=== PATIENT | female | born 1960 | race Caucasian/White ===

== ENCOUNTER 2024-01-09 09:05 | Inpatient (IN) ==
--- NOTE | 2023-12-19 12:45 | PAT Medication Instructions ---
Medication Instructions Date of Service December 19, 2023 Home Medications amlodipine 10 mg tablet 10 mg PO HS azathioprine 50 mg tablet 75 mg PO QAM calcium carbonate 600 mg-vitamin D3 5 mcg (200 unit) tablet 1 tab PO QAM diphenhydramine 25 mg-acetaminophen 500 mg tablet (Tylenol PM Extra Strength) 1 - 2 tab PO HS famotidine 40 mg tablet (Pepcid) 40 mg PO HS fenofibrate 120 mg tablet 145 mg PO QAM glucosamine sulf dipot chlr,msm,chond 550 mg-C 30 mg-gema 1 mg capsule (Glucosamine Chondroitin) 1 cap PO BID levothyroxine 137 mcg tablet (Synthroid) 137 mcg PO QAM lisinopril 40 mg tablet 40 mg PO HS magnesium 500 mg tablet 500 mg PO QAM meloxicam 15 mg tablet 15 mg PO QAM mesalamine 500 mg capsule,extended release 1,000 mg PO QID multivitamin 1 cap PO QAM omega-3 fatty acids 1,000 mg PO QAM potassium 99 mg tablet 0 mg PO QAM venlafaxine 37.5 mg tablet 37.5 mg PO QAM venlafaxine 75 mg tablet 75 mg PO QAM ASK your surgeon for instructions meloxicam 15 mg tablet 15 mg PO QAM ASK your prescriber and surgeon azathioprine 50 mg tablet 75 mg PO QAM STOP taking 2 weeks before surgery (or as soon as possible if surgery is within 2 weeks) glucosamine sulf dipot chlr,msm,chond 550 mg-C 30 mg-gema 1 mg capsule (Glucosamine Chondroitin) 1 cap PO BID omega-3 fatty acids 1,000 mg PO QAM STOP taking 48 hours before surgery fenofibrate 120 mg tablet 145 mg PO QAM DO NOT take the morning of surgery calcium carbonate 600 mg-vitamin D3 5 mcg (200 unit) tablet 1 tab PO QAM magnesium 500 mg tablet 500 mg PO QAM mesalamine 500 mg capsule,extended release 1,000 mg PO QID multivitamin 1 cap PO QAM potassium 99 mg tablet 0 mg PO QAM Take morning of surgery With a small sip of water, OTHERWISE NOTHING TO EAT OR DRINK AFTER MIDNIGHT: levothyroxine 137 mcg tablet (Synthroid) 137 mcg PO QAM venlafaxine 37.5 mg tablet 37.5 mg PO QAM venlafaxine 75 mg tablet 75 mg PO QAM Take evening before surgery amlodipine 10 mg tablet 10 mg PO HS diphenhydramine 25 mg-acetaminophen 500 mg tablet (Tylenol PM Extra Strength) 1 - 2 tab PO HS famotidine 40 mg tablet (Pepcid) 40 mg PO HS lisinopril 40 mg tablet 40 mg PO HS mesalamine 500 mg capsule,extended release 1,000 mg PO QID Other Notes If you have any questions please call us at [phone] or [phone] or [phone] or [phone]
--- NOTE | 2023-12-26 09:46 | Anesthesiology Consultation ---
Date of Service December 26, 2023 Assessment & Plan (1) Encounter for pre-operative examination: Chart Review Chart Review: Acceptable Risk for Surgery and Patient seen in Pre Admission Testing Per PAT appt on 12/26/23, no recent illness/disease exposures, illness related symptoms, or recent illness/disease positive tests. Will leave to surgeon's discretion if preop Covid testing needed Per PCP clearance letter 12/29/23= Patient is low to moderate risk for complications during proposed surgery. Patient seen by PCP in office 12/29/23= patient seen for preoperative visit. Labs, urinalysis and CXR reviewed. Physical exam within normal limits. Patient is medically appropriate for surgery. Teaching & Discussion Pre-Anesthesia Teaching/Discussion Notes: Instructed NPO after midnight before surgery,except medications with 15 cc of water. Medication instructions provided according to the PAT guidelines. History Surgery Operation Date: 01/09/24 09:30 Proposed Procedures p T12-L1 Decompression, L3-S1 Decompression and Fusion with Spinal Cord Monitoring - Ramiro Love, Height/Weight Height: 5 ft 3 in Weight: 87.543 kg Allergies Allergy/AdvReac Type Severity Reaction Status Date / Time metoclopramide [From Reglan] Allergy Severe Seizure Verified 12/19/23 09:15 Penicillins Allergy Unknown Hives Verified 12/19/23 09:15 Medications Home Medications Medication Instructions Recorded Confirmed Last Taken amlodipine 10 mg tablet 10 mg PO HS 12/19/23 12/19/23 Unknown azathioprine 50 mg tablet 75 mg PO [facility] 12/19/23 12/19/23 Unknown calcium carbonate 600 mg-vitamin 1 tab PO [facility] 12/19/23 12/19/23 Unknown D3 5 mcg (200 unit) tablet diphenhydramine 25 1 - 2 tab PO HS 12/19/23 12/19/23 Unknown mg-acetaminophen 500 mg tablet (Tylenol PM Extra Strength) famotidine 40 mg tablet (Pepcid) 40 mg PO HS 12/19/23 12/19/23 Unknown fenofibrate 120 mg tablet 145 mg PO QAM 12/19/23 12/19/23 Unknown glucosamine sulf dipot 1 cap PO BID 12/19/23 12/19/23 Unknown chlr,msm,chond 550 mg-C 30 mg-gema 1 mg capsule (Glucosamine Chondroitin) levothyroxine 137 mcg tablet 137 mcg PO QAM 12/19/23 12/19/23 Unknown (Synthroid) lisinopril 40 mg tablet 40 mg PO HS 12/19/23 12/19/23 Unknown magnesium 500 mg tablet 500 mg PO QAM 12/19/23 12/19/23 Unknown meloxicam 15 mg tablet 15 mg PO QAM 12/19/23 12/19/23 Unknown mesalamine 500 mg capsule,extended 1,000 mg PO QID 12/19/23 12/19/23 Unknown release multivitamin 1 cap PO QAM 12/19/23 12/19/23 Unknown omega-3 fatty acids 1,000 mg PO QAM 12/19/23 12/19/23 Unknown potassium 99 mg tablet 0 mg PO QAM 12/19/23 12/19/23 Unknown venlafaxine 37.5 mg tablet 37.5 mg PO QAM 12/19/23 12/19/23 Unknown venlafaxine 75 mg tablet 75 mg PO QAM 12/19/23 12/19/23 Unknown Past Medical History Medical History Acid reflux well controlled and stable Acute muscle stiffness of neck on occ/feels like neck needs to crack - full rom. mildly improved at PAT appt 12/26/23 Chronic kidney disease Crohn's disease Stable per patient Depression High cholesterol HTN (hypertension) Hypothyroid Lumbar herniated disc Including lower thoracic area Nausea and vomiting after administration of anesthetic agent Exercise / Class Metabolic Activity II 4-5 Yardwork/Stairs/Walk up hill (one flight of stairs - no chest pain or SOB ) Past Surgical History Surgical History History of appendectomy History of bowel resection x2 History of x2 History of cholecystectomy laparoscopic History of colonoscopy History of endoscopy remote hx History of hysterectomy partial History of total left hip replacement Past Anesthesia History No Hx of Anesthesia Complications (with exception to PONV ) and No Family Hx of Anesthesia Complications History of PONV History of PONV (mildly relieved with pre and perioperative anti nausea medication ) and Hx of Motion Sickness Social History Smoking Status: Never smoker Do You Dip or Chew Tobacco: No Hx Alcohol Use: No Hx Substance Use: No substance use type: does not use Review of Systems - Chronic cough- mild in severity- only occasionally. Due to Lisinopril per patient - Hx of seizure (years ago per patient) - remote hx with Reglan- no seizure meds needed- no issues since taken off medication - Occ mild snoring - no witnessed apnea Patient denies chest pain, shortness of breath, dyspnea on exertion, cough, wheezing, palpitations. No hx of stroke, AL. No hx of blood clots or blood transfusions Physical Exam Vital Signs VITALS BP 134/83 P 81 TEMP 98.1 SP02 95% RESP 16 Constitutional no acute distress ENMT Mouth: no TMJ clicking Thyromental Distance: > or= 3.5 Finger Breadths (3.5) Mallampati Class: III Permanent implants to side teeth Crowns (patient unsure where) Neck + limited neck extension (mild) Respiratory normal respiratory effort; no respiratory distress Auscultation: lungs clear to auscultation bilaterally; no wheezes Cardiovascular Rate/Rhythm: regular rate and regular rhythm Heart Sounds: no murmur Vessels: no carotid bruit Musculoskeletal Spine: + pain with cervical ROM (mild) Extremities: extremities normal to inspection Psychiatric Orientation: alert Lab Results Anesthesia Preop Results Results Anesthesia Widget: WBC 7.30 K/ul (4.8-10.8) 12/26/23 Hgb 12.2 g/dl (12.0-16.0) 12/26/23 Hct 36.7 % (37.0-47.0) L 12/26/23 Plt 244 K/uL (130-400) 12/26/23 Na 141 mmol/L (136-145) 12/26/23 K 4.3 mmol/L (3.5-5.1) 12/26/23 Cl 108 mmol/L (98-107) H 12/26/23 CO2 28 mmol/L (21-32) 12/26/23 BUN 24 mg/dl (6-23) H 12/26/23 Creat 1.14 mg/dl (0.6-1.2) 12/26/23 Glucose Level 95 mg/dl (70-99(Fasting)) 12/26/23 PT 10.6 Seconds (9.0-12.0) 12/26/23 PTT 24 Seconds (21-31) 12/26/23 INR 1.0 (0.9-1.1) 12/26/23 Urine Color Dark Yellow 12/26/23 Urine Appearance Clear (Clear) 12/26/23 Urine pH 5.5 (4.5-7.5) 12/26/23 Urine Specific [place] 1.023 (1.000-1.030) 12/26/23 Urine Protein Negative (Negative) 12/26/23 Urine Glucose (UA) Negative (Negative) 12/26/23 Urine Ketones Trace (Negative) H 12/26/23 Urine Blood Negative (Negative) 12/26/23 Urine Nitrite Negative (Negative) 12/26/23 Urine Bilirubin Negative (Negative) 12/26/23 Urine Urobilinogen Negative (Negative) 12/26/23 Urine Leukocyte Esterase Negative (Negative) 12/26/23 Blood Type A Positive 12/26/23 Antibody Screen NEGATIVE 12/26/23 Testing Electrocardiogram Date: 12/26/23 Findings: + NSR @ (78bpm) Normal EKG per cardio Chest X-Ray Date: 12/26/23 Findings: + NAD FINDINGS: Cholecystectomy. Cardiomediastinal and hilar silhouettes are within normal limit s. No pneumothorax, pleural effusion or airspace consolidation. Spondylotic spurring of the spine appear
[2024-01-09] MEDS: LR 15ML/HR IV SCH (10:10)
[2024-01-09] MEDS: LR 60ML/HR IV SCH (10:16)
[2024-01-09] MEDS: VANCOMYCIN HCL 1,250 MG in SODIUM CHLORIDE 0.9% 250 ML IV SCH (10:17)
[2024-01-09] MEDS: ACETAMINOPHEN 500 MG TAB PO SCH (10:21)
[2024-01-09] MEDS: GABAPENTIN 600 MG DOSE PO SCH (10:22)
[2024-01-09] MEDS: CeleBREX 200 MG CAP PO SCH (10:22)
[2024-01-09] MEDS ORDERED: ATROPINE SULFATE 0.1 MG/ML 10ML SYR IV PRN (11:27)
[2024-01-09] MEDS ORDERED: ONDANSETRON INJ 2 MG/ML 2 ML VIAL IV PRN (11:27)
[2024-01-09] MEDS ORDERED: ePHEDrine sulfate 50 MG/ML AMP IV PRN (11:27)
[2024-01-09] MEDS ORDERED: fentaNYL citrate PF 100 MCG/2 ML VIAL IV PRN (11:27)
--- NOTE | 2024-01-09 12:13 | History & Physical Bridge Note ---
Date of Service January 09, 2024 History & Physical Bridge Note I have examined the patient, reviewed the History & Physical and in the interval since the performance of the History & Physical I have noted the following changes of clinical significance: no changes noted
--- NOTE | 2024-01-09 12:14 | History & Physical Report ---
Date of Service January 09, 2024 Assessment & Plan (1) Neurogenic claudication due to lumbar spinal stenosis: Plan: T12-L1 decompression, L3-S1 decompression and fusion History of Present Illness Chief Complaint: Back and bilateral leg pain Primary Care Provider: HARSHIL Jane This is a 63-year-old female who presents with chronic persistent back and leg pain and failing since course of nonoperative care is here for surgical invention. Allergies Allergy/AdvReac Type Severity Reaction Status Date / Time metoclopramide [From Reglan] Allergy Severe Seizure Verified 01/09/24 10:11 Penicillins Allergy Unknown Hives Verified 01/09/24 10:11 Home Medications Medication Instructions Recorded Confirmed Type amlodipine 10 mg tablet 10 mg PO HS 12/19/23 01/09/24 History azathioprine 50 mg tablet 75 mg PO QAM 12/19/23 01/09/24 History calcium carbonate 600 mg-vitamin 1 tab PO QAM 12/19/23 01/09/24 History D3 5 mcg (200 unit) tablet diphenhydramine 25 1 - 2 tab PO HS 12/19/23 01/09/24 History mg-acetaminophen 500 mg tablet (Tylenol PM Extra Strength) famotidine 40 mg tablet (Pepcid) 40 mg PO HS 12/19/23 01/09/24 History fenofibrate 120 mg tablet 145 mg PO QAM 12/19/23 01/09/24 History glucosamine sulf dipot 1 cap PO BID 12/19/23 01/09/24 History chlr,msm,chond 550 mg-C 30 mg-gema 1 mg capsule (Glucosamine Chondroitin) levothyroxine 137 mcg tablet 137 mcg PO QAM 12/19/23 01/09/24 History (Synthroid) lisinopril 40 mg tablet 40 mg PO HS 12/19/23 01/09/24 History magnesium 500 mg tablet 500 mg PO QAM 12/19/23 01/09/24 History meloxicam 15 mg tablet 15 mg PO QAM 12/19/23 01/09/24 History mesalamine 500 mg capsule,extended 1,000 mg PO QID 12/19/23 01/09/24 History release multivitamin 1 cap PO QAM 12/19/23 01/09/24 History omega-3 fatty acids 1,000 mg PO QAM 12/19/23 01/09/24 History potassium 99 mg tablet 0 mg PO QAM 12/19/23 01/09/24 History venlafaxine 37.5 mg tablet 37.5 mg PO QAM 12/19/23 01/09/24 History venlafaxine 75 mg tablet 75 mg PO QAM 12/19/23 01/09/24 History Past Med/Surg History Medical History Acid reflux well controlled and stable Acute muscle stiffness of neck on occ/feels like neck needs to crack - full rom. mildly improved at PAT appt 12/26/23 Chronic kidney disease Crohn's disease Stable per patient Depression High cholesterol HTN (hypertension) Hypothyroid Lumbar herniated disc Including lower thoracic area Nausea and vomiting after administration of anesthetic agent Surgical History History of appendectomy History of bowel resection x2 History of x2 History of cholecystectomy laparoscopic History of colonoscopy History of endoscopy remote hx History of hysterectomy partial History of total left hip replacement Social History Smoking Status: Never smoker Do You Dip or Chew Tobacco: No; Hx Alcohol Use: No Hx Substance Use: No Preferred Language: Samoan Communication Ability: Effective Oil Gas And Pipe Tester Required: No Beliefs That Will Affect Care: None Current Living Situation: Spouse Other Information That Helps Us Care for You: No Feels Safe at Home: Yes Assistive Devices: Glasses Physical Exam Physical Exam: Patient is alert and oriented Heart regular in rhythm Lungs clear Results & Data Results & Data Vital Signs (Past 12 Hours) Vital Signs Temp Pulse Resp BP Pulse Ox O2 Del Method 01/09/24 10:09 36.9 C 86 20 130/85 96 Room Air
[2024-01-09] MEDS: SCOPOLAMINE 1 MG/72 HR TDSY PATCH TD ONE (12:16)
[2024-01-09] MEDS ORDERED: fentaNYL citrate PF 100 MCG/2 ML VIAL ONE (12:26)
[2024-01-09] MEDS ORDERED: MIDAZOLAM HCL 1 MG/ML 2ML VIAL ONE (12:26)
[2024-01-09] MEDS ORDERED: LIDOCAINE 2% 20 MG/ML 5 ML SYR IV ONE (12:27)
[2024-01-09] MEDS ORDERED: ROCURONIUM BROMIDE 10 MG/ML 5 ML VIAL IV ONE ×3 (12:27→13:09)
[2024-01-09] MEDS ORDERED: PROPOFOL IV EMULSION 10 MG/ML 20 ML VIAL IV ONE ×3 (12:27→14:31)
[2024-01-09] MEDS ORDERED: ONDANSETRON INJ 2 MG/ML 2 ML VIAL ONE (12:27)
[2024-01-09] MEDS ORDERED: DEXAMETHASONE SOD INJ 4 MG/ML VIAL ONE (12:27)
[2024-01-09] MEDS ORDERED: PHENYLEPHRINE HCL 10 MG/ML VIAL ONE (13:05)
[2024-01-09] MEDS ORDERED: diphenhydrAMINE 50 MG/ML VIAL ONE (13:16)
[2024-01-09] MEDS ORDERED: GLYCOPYRROLATE 0.2 MG/ML VIAL ONE (13:16)
[2024-01-09] MEDS: BUPIVACAINE/EPINEPHRINE 0.25% 1:200,000 30 ML VIAL ONE (13:32)
[2024-01-09] MEDS ORDERED: HYDROmorphone INJ 2 MG/ML SYR/VIAL ONE (13:35)
[2024-01-09] MEDS ORDERED: SUGAMMADEX SODIUM 200 MG/2 ML VIAL IV ONE (14:59)
[2024-01-09] MEDS: ceFAZolin 330 MG/ML 1 GM VIAL ONE (15:40)
[2024-01-09] MEDS: FLOSEAL HEMOSTATIC MATRIX 10ML TOP ONE (15:41)
--- NOTE | 2024-01-09 16:20 | Operative Report ---
Post Operative Report Pre & Post Diagnosis Operation Date: 01/09/24 11:50 Pre-Op Diagnosis: #1 lumbar spinal stenosis with neurogenic claudication #2 T12-L1 disc herniation #3 obesity Post-Op Diagnosis: Same I identified the patient and participated in the time-out.: Yes Procedure Operation Date: 01/09/24 11:50 Actual Procedures #1 lumbar decompression with discectomy T12-L1. #2 lumbar decompression with bilateral medial facetectomies and foraminotomies L2-L3, L3-L4, L4-5 and L5-S1. #3 posterior spinal fusion L3-S1. #4 posterior segmental instrumentation L3-S1. #5 placement locally harvested morselized autograft posterior gutters. #6 placement infuse collagen sponge, with Koros bone graft in the posterior gutters L3-S1. Surgeon Ramiro Love, DO Land Clearer None Estimated Blood Loss 400 Findings See Below The patient is 5 foot 3 weighing 88 kg with a BMI in excess of 34. The patient's body was did contribute to significant technical difficulty with positioning exposure and the procedure itself and at least 50% increased operative time. Specimens None Indications This is a 63-year-old female who presents above-mentioned diagnosis or plan since course of nonoperative care is here for surgical invention. Description of Procedure Patient was met with identified informed consent obtained. Patient was then taken to the operative suite underwent a patient placed in a prone position on the Derian table on top of the Arnaud frame. All bony promises well-padded eyes inspected to ensure no external pressure placed upon the. This point lumbar spine was prepped and draped in normal sterile fashion. Sharp dissection with the assistance of Bovie cautery performed down to and exposing the lamina transverse processes of L3 L4-L5 and S1 levels bilaterally. From caudal to cephalad fashion complete laminectomy of the L5 was performed including bilateral medial facetectomies followed by a complete laminectomy of L4 with bilateral medial facetectomies foraminotomies then L3 with a bilateral medial facetectomies and foraminotomies and lastly partial laminectomy of L2 with bilateral medial facetectomies. Severe spinal stenosis was throughout the canal and addressed. 2 mm incidental durotomy was identified. Two 4-0 Nurolon sutu res were then utilized to close the durotomy site with a watertight seal. Pedicle screws were then placed in L3-L4-L5 and S1 levels bilaterally with assistance of fluoroscopy purposes john contoured and locked into position bilaterally. I then proceeded to T8-12 L1. A midline laminectomy decompression was performed including bilateral medial facetectomies allowing me to laterally approach a large disc herniation on the right. I was able to remove the fragments. The incision was then copiously irrigated the transverse processes of L3 L4-5 and the sacral ala burred to subcortical bleeding bone. Infuse collagen sponge, with Koros and local autograft placed in posterior gutters. 15 round NATALIE drain inserted. The incision was then closed with 1 Vicryl in the fascia 2-0 Vicryl subcutaneously and 4 Monocryl for final skin closure. Steri- Strips sterile dressing placed. Patient awakened taken to PACU in stable condition. Please note spinal cord monitoring was utilized at the procedure and no changes noted. I attest to the content of the Intraoperative Record and any orders documented therein. Any exceptions are noted below.
--- NOTE | 2024-01-09 16:23 | Fluoroscopy Report ---
FL lumbar spine 2-3V CLINICAL HISTORY: T12-L1 DECOMPRESSION L3-S1 DECOMPRESSION AND FUSION COMPARISON STUDY: None FLUOROSCOPY TIME: 34 seconds FLUOROSCOPY IMAGES: 3 EXPOSURE DOSE: 29.01 mGy FINDINGS: Posterior interbody john and screw fusion hardware is noted at what appears to be the L3-S1 levels. Hardware appears intact. No unexpected opaque foreign bodies. IMPRESSION: Fluoroscopic assistance as above. ACT 112: Negative or not required by law. Electronically signed by: Neno Dalal M.D. 01/09/2024 4:21 PM
--- NOTE | 2024-01-09 17:02 | Anesthesiology Progress Note ---
Date of Service January 09, 2024 Anesthesia Post Procedure Vital Signs Vital Signs: Temp Pulse Pulse Resp BP Pulse Ox O2 Del Method 01/09/24 16:55 36.4 C L 88 15 113/62 97 Oxymask 01/09/24 16:45 84 14 121/70 97 Oxymask 01/09/24 16:35 89 15 103/58 L 97 Oxymask 01/09/24 16:25 85 15 98/56 L 98 Oxymask 01/09/24 16:17 36.2 C L 94 H 17 105/60 97 Oxymask 01/09/24 10:09 36.9 C 86 20 130/85 96 Room Air O2 Flow Rate 01/09/24 16:55 5 01/09/24 16:45 5 01/09/24 16:35 5 01/09/24 16:25 5 01/09/24 16:17 5 01/09/24 10:09 Transfer of Care Handoff Completed per policy Notes Mental Status: alert / awake / arousable Patient Amnestic to Procedure: Yes Nausea / Vomiting: adequately controlled Pain: adequately controlled Airway Patency, RR, SpO2: stable & adequate BP & HR: stable & adequate Hydration State: stable & adequate Anesthetic Complications: no major complications apparent and Pt Satisfied with anesthetic care
[2024-01-09] MEDS ORDERED: diphenhydrAMINE Capsule 25 MG CAP PO PRN (18:02)
[2024-01-09] MEDS ORDERED: METOCLOPRAMIDE HCL INJ 5 MG/ML 2 ML VIAL IV PRN (18:02)
[2024-01-09] MEDS ORDERED: FAMOTIDINE 20 MG TAB PO PRN (18:02)
[2024-01-09] MEDS ORDERED: bisacodyL 10 MG SUPP PR PRN (18:02)
[2024-01-09] MEDS ORDERED: DO NOT ADMINISTER PNEUMOCOCCAL VACCINE PRN (18:02)
[2024-01-09] MEDS ORDERED: NALOXONE HCL 0.4 MG/1 ML VIAL/CARP IV PRN (18:02)
[2024-01-09] MEDS ORDERED: ONDANSETRON 4 MG OD TAB PO PRN (18:02)
[2024-01-09] MEDS ORDERED: DO NOT ADMINISTER FLU VACCINE PRN (18:02)
[2024-01-09] MEDS ORDERED: ALUMINUM/MAGNESIUM SUSP 30 ML UDC PO PRN (18:02)
[2024-01-09] MEDS ORDERED: hydrOXYzine HCl 25 MG TAB PO PRN (18:02)
[2024-01-09] MEDS ORDERED: MAGNESIUM HYDROXIDE SUSP 30 ML UDC PO PRN (18:02)
[2024-01-09] MEDS ORDERED: SOD PHOSPHATE/SOD BIPHOSPHATE ENEMA 132 ML BTL PR PRN (18:02)
[2024-01-09] MEDS ORDERED: LORazepam 0.5 MG TAB PO PRN (18:02)
[2024-01-09] MEDS ORDERED: LORazepam 0.5 MG in SYRINGE 0.25 ML IV PRN (18:02)
[2024-01-09] MEDS: LACTATED RINGER'S 1,000 ML IV SCH (18:46)
[2024-01-09] MEDS: CHECK SCOPOLAMINE PATCH PLACEMENT SCH (19:44)
[2024-01-09] MEDS: MESALAMINE 250 MG CAPCR PO SCH (19:45)
[2024-01-09] MEDS: amLODIPine BESYLATE 5 MG TAB PO SCH (21:17)
[2024-01-09] MEDS: lisinopril 40 MG TAB PO SCH (21:18)
[2024-01-09] MEDS: FAMOTIDINE 40 MG TABLET PO SCH (21:18)
[2024-01-09] MEDS: DOCUSATE SODIUM/SENNA 50/8.6MG TAB PO SCH (21:18)
[2024-01-09] MEDS: oxyCODONE HCL IR 5 MG TAB (IMMEDIATE RELEASE) PO PRN (21:21)
[2024-01-09] MEDS: CLINDAMYCIN/D5W 600 MG/50 ML BAG IV SCH (22:00)
[2024-01-09] MEDS: HYDROmorphone INJ 0.5 MG/0.5 ML SYR IV PRN (22:03)
[2024-01-09] MEDS: ACETAMINOPHEN 1,000 MG/100 ML VIAL IV PRN (22:49)
[2024-01-10] MEDS: ONDANSETRON INJ 2 MG/ML 2 ML VIAL IV PRN (01:03)
[2024-01-10] MEDS: HYDROmorphone INJ 1 MG/ML SYRINGE IV PRN (01:14)
[2024-01-10] MEDS: PROMETHAZINE HCL 12.5 MG in SODIUM CHLORIDE 0.9% 50 ML IV PRN (04:59)
[2024-01-10] MEDS: POLYETHYLENE (MIRALAX) 17 GM PACK PO SCH (05:02)
[2024-01-10] MEDS: LEVOTHYROXINE SODIUM 137 MCG TABLET PO SCH (06:25)
[2024-01-10 06:56] LABS: Basophils # (auto) 0.01 K/uL (0.00-0.20); Basophils % (auto) 0.1 %; Hematocrit (blood only) 30.5 % (37.0-47.0); Hemoglobin 10.7 g/dl (12.0-16.0); Immature Granulocytes # (auto) 0.04 K/uL (0.01-0.20); Immature Granulocytes % (auto) 0.4 %; Lymphocytes # (auto) 0.65 K/uL (1.20-3.40); Mean Corpuscular Hgb Conc 35.1 g/dL (32.0-36.0); Mean Corpuscular Volume 88.4 fL (80.0-100.0); Mean Platelet Volume 11.2 fL (9.4-12.4); Monocytes # (auto) 0.51 K/uL (0.11-0.59); Monocytes % (auto) 4.7 %; Neutrophils # (auto) 9.67 K/uL (1.40-6.50); Neutrophils % (auto) 88.8 %; Platelet Count 210 K/uL (130-400); RDW Coefficient of Variation 12.8 % (11.5-14.5); RDW Standard Deviation 41.1 fL (36.4-46.3); Red Blood Count 3.45 M/uL (4.20-5.40); White Blood Count 10.88 K/ul (4.8-10.8)
[2024-01-10 07:30] LABS: BUN Creatinine Ratio 24.7 (10-20); Calcium 8.1 mg/dl (8.6-10.3); Est GFR (African American) 76.3 ml/min; Est GFR (Non-African American) 65.9 ml/min
--- NOTE | 2024-01-10 08:13 | Hospitalist Consultation ---
Date of Consultation January 10, 2024 Assessment & Plan (1) Neurogenic claudication due to lumbar spinal stenosis: S/p T12-L1 Decompressions and L3-S1 Decompression and Fusion with Dr. Love 01/08 - DVT proh/pain control/ post op abx per primary team - Hgb 10.7, was 12.2 prior to surgery --> dilutional vs acute blood loss anemia - EBL 400 Has been cleared from bedrest, will start with therapy today. (2) Hypothyroid: Continue synthroid (3) HTN (hypertension): Continue amlodipine and lisinopril - lisinopril given PM post op Day #0, kidney function and BP stable, okay to continue (4) Depression: Continue Venlafexine (5) Crohn's disease: also with GERD continue azathioprine, famotidine, fenofibrate and mesalamine Plan Dispo: medically stable Patient pain concern was nausea and pain control which are improving. VSS and labs reviewed. Thank you for allowing us to participate in the care of this patient, medicine will sign off at this time. please reach out with any questions or concerns History of Present Illness Reason for Consultation: medical management Attending Physician: Ramiro Love, DO History of Present Illness Ms. Gupta is a 63F with a PMH of hypothryoid, Chron's disease, and HTN who presents for elective back surgery with Dr. Love. Seen this morning, POD#1, states that she had a rough night with pain and then became nauseous, but both of these symptoms have subsided. Reports poor appetite and has not passed gas since surgery. Non smoker, no CPAP uses at home. Allergies Allergy/AdvReac Type Severity Reaction Status Date / Time metoclopramide [From Reglan] Allergy Severe Seizure Verified 01/09/24 10:11 Penicillins Allergy Unknown Hives Verified 01/09/24 10:11 Home Medications Medication Instructions Recorded Confirmed Type amlodipine 10 mg tablet 10 mg PO HS 12/19/23 01/09/24 History azathioprine 50 mg tablet 75 mg PO QAM 12/19/23 01/09/24 History calcium carbonate 600 mg-vitamin 1 tab PO QAM 12/19/23 01/09/24 History D3 5 mcg (200 unit) tablet diphenhydramine 25 1 - 2 tab PO HS 12/19/23 01/09/24 History mg-acetaminophen 500 mg tablet (Tylenol PM Extra Strength) famotidine 40 mg tablet (Pepcid) 40 mg PO HS 12/19/23 01/09/24 History fenofibrate 120 mg tablet 145 mg PO QAM 12/19/23 01/09/24 History glucosamine sulf dipot 1 cap PO BID 12/19/23 01/09/24 History chlr,msm,chond 550 mg-C 30 mg-gema 1 mg capsule (Glucosamine Chondroitin) levothyroxine 137 mcg tablet 137 mcg PO QAM 12/19/23 01/09/24 History (Synthroid) lisinopril 40 mg tablet 40 mg PO HS 12/19/23 01/09/24 History magnesium 500 mg tablet 500 mg PO QAM 12/19/23 01/09/24 History meloxicam 15 mg tablet 15 mg PO QAM 12/19/23 01/09/24 History mesalamine 500 mg capsule,extended 1,000 mg PO QID 12/19/23 01/09/24 History release multivitamin 1 cap PO QAM 12/19/23 01/09/24 History omega-3 fatty acids 1,000 mg PO QAM 12/19/23 01/09/24 History potassium 99 mg tablet 0 mg PO QAM 12/19/23 01/09/24 History venlafaxine 37.5 mg tablet 37.5 mg PO QAM 12/19/23 01/09/24 History venlafaxine 75 mg tablet 75 mg PO QAM 12/19/23 01/09/24 History oxycodone 5 mg tablet 5 mg PO Q6H PRN pain #30 tabs 01/10/24 Rx tramadol 50 mg tablet 50 mg PO Q6H PRN pain, moderate 01/10/24 Rx #30 tabs Patient History Medical History (Updated 01/10/24 @ 08:16 by Pauline Mar PA-C) Depression HTN (hypertension) Lumbar herniated disc Including lower thoracic area Nausea and vomiting after administration of anesthetic agent Acute muscle stiffness of neck on occ/feels like neck needs to crack - full rom. mildly improved at PAT appt 12/26/23 Chronic kidney disease Acid reflux well controlled and stable Crohn's disease Stable per patient Hypothyroid High cholesterol Surgical History History of hysterectomy partial History of appendectomy History of cholecystectomy laparoscopic History of bowel resection x2 History of x2 History of endoscopy remote hx History of colonoscopy History of total left hip replacement Social History Smoking Status: Never smoker Do You Dip or Chew Tobacco: No; Hx Alcohol Use: No Hx Substance Use: No Preferred Language: Portuguese Communication Ability: Effective Certified Master Safe Technician Required: No Beliefs That Will Affect Care: None Current Living Situation: Spouse Other Information That Helps Us Care for You: No Feels Safe at Home: Yes Assistive Devices: Glasses Review of Systems Review of Systems: All systems reviewed & are unremarkable except as noted in Subjective Physical Exam Physical Exam: General: NAD, lying in bed, just cleared from bed rest VS as above Resp: normal respiratory effort, lungs clear to auscultation CV: RRR, no murmur, Abd: soft, non tender, no hepatosplenomegaly Extremities: Moves all extremities, no edema Drain with minimal serosanguineous drainage Results & Data Results & Data Vital Signs (Past 12 Hours) Vital Signs Temp Pulse Resp BP Pulse Ox O2 Del Method O2 Flow Rate 01/10/24 07:19 36.7 C 97 H 17 137/75 94 Room Air 01/10/24 05:50 36.3 C L 99 H 20 159/84 H 95 Room Air 01/10/24 01:01 87 20 127/75 97 Nasal Cannula 2 01/09/24 20:53 36.5 C 91 H 18 117/68 97 Nasal Cannula 2.0 01/09/24 20:32 Nasal Cannula 2 Laboratory Results CBC and Chemistry reviewed PG Care Time/CCT Total # of Minutes Spent Total Time Spent with Patient: Total time spent is greater than 50% in coordination of care (as documented) at patient's floor/unit and/or counseling patient: Coding Level of Care Code 51160 IN/OBS CONSULT LVL 3,45M Diagnoses Neurogenic claudication due to lumbar spinal stenosis M48.062 Hypothyroid E03.9 HTN (hypertension) I10 Depression F32.A Crohn's disease K50.90
--- NOTE | 2024-01-10 08:40 | Orthopedic Progress Note ---
Date of Service January 10, 2024 Assessment & Plan (1) Neurogenic claudication due to lumbar spinal stenosis: Plan: At this time we will discontinue her and initiate physical therapy today. Will see how she progresses throughout the next few days and possibly return home. Admission and Anticipated Discharge Date Admission Date: January 09, 2024 Subjective Patient is complaining of back pain. She denies any leg pain. Struggling with some nausea. Denies headache or photosensitivity. Physical Exam Physical Exam: On exam she is sitting up in bed. She has good strength testing. Sensory is intact. Results & Data Vital Signs (Past 12 Hours) Vital Signs Temp Pulse Resp BP Pulse Ox O2 Del Method O2 Flow Rate 01/10/24 07:19 36.7 C 97 H 17 137/75 94 Room Air 01/10/24 05:50 36.3 C L 99 H 20 159/84 H 95 Room Air 01/10/24 01:01 87 20 127/75 97 Nasal Cannula 2 01/09/24 20:53 36.5 C 91 H 18 117/68 97 Nasal Cannula 2.0 Queries Orthopedic Spine Obesity: Yes
[2024-01-10] MEDS: azaTHIOprine 25 MG TAB PO SCH (08:43)
[2024-01-10] MEDS: MAGNESIUM OXIDE 400 MG TAB PO SCH (08:43)
[2024-01-10] MEDS: VENLAFAXINE HCL XR 75 MG CAPXR PO SCH (08:43)
[2024-01-10] MEDS: dexAMETHasone 6 MG in SYRINGE 0 ML IV SCH (08:43)
[2024-01-10] MEDS: FENOFIBRATE NANOCRYSTALLIZED 145 MG TABLET PO SCH (08:43)
[2024-01-10] MEDS: CALCIUM 600MG + VIT D 400 IU TAB PO SCH (08:43)
[2024-01-10] MEDS: VENLAFAXINE HCL XR 37.5 MG CAPXR PO SCH (08:43)
--- OUTSIDE RECORDS SUMMARY | 2024-01-10 09:57 | External Medical Summary | Continuity of Care Document ---
Author Name Unknown Organization [facility] Address [address] [place] [address] Phone [phone] Care Team Providers Care Rat Exterminator Name Role Phone Karan Sainz MD Care Team Information Receiv er [phone] [facility] Care Team Information Staff Veterinarian [phone] Problems Active Problems Provider Date Essential hypertension HARSHIL Decker O nset: 06/12/2010 Mixed hyperlipidemia HARSHIL Decker Ons et: 07/17/2016 Hypothyroidism HARSHIL Decker Onset: 0 03/25/2017 Gastroesophageal reflux disease HARSHIL Cedillo Onset: 06/12/2010 Rosacea HARSHIL Decker Onset: 0 06/12/2010 Crohn's disease of small intestine HARSHIL Fink Onset: 03/13/2016 Mild recurrent major depression HARSHIL Cedillo Onset: 07/17/2016 Social History Type Date Description Comments Sex Unknown Tobacco Use Start: Unknown End: Unknown Former Cigarette Smoker Cigarette Use 10/10/2023 Quit at age 21 Smoking Status Reviewed: 12/29/23 Former Cigarette Smo ker Tobacco Use Reviewed: 10/10/23 Never Smoked Cigars Tobacco Use Reviewed: 10/10/23 Never Smoked A Pipe Smokeless Tobacco 10/10/2023 Never Used Smokeless To bacco ETOH Use Denies alcohol use Recreational Drug Use Denies Drug Use Seat Belt/Car Seat always uses seat belt Allergies and adverse reactions Active Allergies Criticality Reaction | Severity Comments Date Reglan Unable to assess criticality seizures 06/22/2009 Penicillins Unable to assess criticality hives 06/22/2009 Medications Active Medications SIG Qnty Indications Order ing Provider Date Levothyroxine Rbamqf969udd Capsules Take 1 Tablet Daily 90caps E03.8 HARSHIL Decker 10/10/2023 Rvqlfnnogy16yb Tablets take 1 capsule daily 90tabs K21.9 HARSHIL Decker 04/04/2023 Venlafaxine HCL ER37.5mg Caps ER 24HR 1 by mouth every day with a 75 mg capsule 90caps F33.0 HARSHIL Decker 07/31/2021 Amlodipine Lqjvnvsd05yg Tablets take 1 tablet daily 90tabs I10 HARSHIL Decker 06/21/2021 Fomiomyuohym408de Tablets one pill by mouth one hour prior to dental work 1tabs HARSHIL Decker 08/18/2020 Twfuwcpqgqu995wb Tablets take 1 tablet daily 90tabs E78.2 HARSHIL Decker 07/31/2020 Venlafaxine HCL ER75mg Caps ER 24HR Take 1 Capsule Daily 90caps F33.0 HARSHIL Decker 04/27/2018 Wdebrrlrlg73jj Tablets Take 1 Tablet Daily 90tabs I10 HARSHIL Decker 07/17/2009 Vqdzsfm773qz Capsules ER 2 tabs four times a day 720caps K50.00 HARSHIL Decker 09/15/1999 MultivitaminsTablets 1 po qd otc Unknown Vitamin C500mg Capsules 1 by mouth every day Unknown Mzfugkfcrqkwp371cu Tablets 2 tabs up to three times a day as needed for pain Unknown Calcium 500 + [id number] Tablets 1 by mouth twice a day Unknown Kxnybefdzzdr94ub Tablets 75 mg daily K50.00 Unk nown Dgcylvlunj6ud Caps DR Part Take 3 Capsules By Mouth In The Morning Rajni Blackman PA-C Immunizations CPT Code Status Date Vaccine Lot # [id number] Given 07/29/2023 Influenza Virus Vaccine, Quadrivalent (Cciiv4), Derived From Cell 47016 Given 07/30/2022 Influenza Virus Vaccine, Quadrivalent (Cciiv4), Derived From Cell 72364 Given 07/31/2021 Influenza Virus Vaccine, Quadrivalent (Cciiv4), Derived From Cell 70791 Given 01/06/2021 Moderna Sars-Co v-2 (Cov-19) vacc,100 mcg/ 0.5 mL 12Y+EMR Doc Only [id number] 05966 Given 12/09/2020 Moderna Sars-Co v-2 (Cov-19) vacc,100 mcg/ 0.5 mL 12Y+EMR Doc Only [id number] 88919 Given 06/09/2020 Influenza Virus Vaccine, Quadrivalent, Im Use [id number] 86872 Given 08/17/2018 Influenza Virus Vaccine, Quadrivalent, Im Use [id number] 84695 Given 08/04/2017 Influenza Virus Vaccine, Quadrivalent, Im Use [id number] 94077 Given 05/21/2016 Influenza Virus Vaccine, Quadrivalent, Im Use [id number] 69812 Given 07/11/2015 Influenza Virus Vaccine, Quadrivalent, Im Use [id number] 60309 Given 12/01/2002 Hep B Adult Vac 38274 Given 06/14/2002 Hep B Adult Vac 61715 Given 05/11/2002 Hep B Adult Vac 04647 Refused 10/10/2023 Shingrix 57183 Refused 05/23/2023 Influenza Virus Vaccine, Quadrivalent (Cciiv4), Derived From Cell 83928 Refused 05/23/2023 Moderna Sars-Co v-2 (Covid-19) Vaccine, BiValent Booster [id number] 92451 Refused 08/23/2022 Shingrix 00084 Refused 04/08/2022 Moderna Sars-Co v-2 (Cov-19) vacc,100 mcg/ 0.5 mL 12Y+EMR Doc Only [id number] Refused 04/13/2021 Shingrix 18030 Refused 07/31/2020 Tdap (Tetanus, diphtheria & acel. pertussis) Adacel or Boostrix 98956 Refused 03/30/2020 Shingrix 57921 Refused 07/08/2019 Tdap (Tetanus, diphtheria & acel. pertussis) Adacel or Boostrix 20881 Refused 04/14/2018 Tdap (Tetanus, diphtheria & acel. pertussis) Adacel or Boostrix 91792 Refused 03/16/2018 Shingrix 22110 Refused 03/25/2017 Tdap (Tetanus, diphtheria & acel. pertussis) Adacel or Boostrix 79183 Refused 03/13/2016 Tdap (Tetanus, diphtheria & acel. pertussis) Adacel or Boostrix 71926 Refused 10/20/2014 Influenza Virus Vaccine, Quadrivalent, Im Use 40806 Refused 07/13/2013 Influenza Vac, Split 3 Yr s And Up Vital Signs Date Vital Result Comment 12/29/2023 12:33pm BP Systolic 140 mmHg BP Diastolic 84 mmHg BP Systolic Recheck 134 mmHg BP Diastolic Recheck 82 mmHg Body Temperature 97.9 F Heart Rate 78 /min Respiratory Rate 16 /min Weight 198.00 lb Weight 89.813 kg Height 64 inches 5'4" BMI (Body Mass Index) 34.0 kg/m2 [place] Body Weight 120 lb 10/10/2023 11:25am BP Systolic 146 mmHg BP Diastolic 82 mmHg BP Systolic Recheck 144 mmHg BP Diastolic Recheck 84 mmHg Body Temperature 97.5 F Heart Rate 92 /min Respiratory Rate 20 /min Weight 193.00 lb Weight 87.545 kg Height 64 inches 5'4" BMI (Body Mass Index) 33.1 kg/m2 [place] Body Weight 120 lb Results Test Acquired Date Facility Test Result H/L Range N ote Urinalysis 10/10/2023 [facility]. [address] [place] [address] [phone] Color ORANGE Abnormal Appearance TURBID Abnormal Clear Spec.Grav. 1.025 1.005-1.025 Leukocytes NEGATIVE Negative Nitrite NEGATIVE Negative PH 5.5 Low 6.0-7.5 Protein NEGATIVE Negative Urine Glucose NEGATIVE Negative Ketone NEGATIVE Negative Urobilinogen NORMAL E.U./DL Normal Bilirubin NEGATIVE Negative Blood NEGATIVE Negative WBC-U NONE SEEN /HPF 0-5/HPF RBC-U NONE SEEN /HPF 0-5/HPF Bacteria NONE SEEN None Seen Squamous 3-5 /HPF 0-5/HPF Caox Crystal 1+ /HPF Abnormal Not Present General Health Panel 10/02/2023 [facility]. [address] [place], [place] [id number] [phone] TSH 7.59 uIU/mL High 0.50-6.00 Comp. Met 10/02/2023 [facility]. [address] [place] [address] [phone] Glucose 92 mg/dL 70-110 BUN 24 mg/dL 6-25 Creatinine 1.1 mg/dL 0.5-1.2 Sodium 144 mEq/L 135-145 Potassium 3.9 mEq/L 3.5-5.0 Chloride 107 mEq/L 95-107 Co-2 25 mEq/L 24-31 Alk Phos 40 IU/L Low 43-122 Alt(SGPT) 28 IU/L 10-40 Ast(Sgot) 29 IU/L 3-42 T.Bilirubin 0.5 mg/dL 0.1-1.3 Calcium 9.6 mg/dL 8.5-10.6 Tot.Protein 6.6 g/dL 5.8-8.0 Albumin 4.1 g/dL 3.0-5.2 Globulin 2.5 g/dL 2.0-3.4 GFR 53 ML/MIN/1.73SQM Low >60 Lipid 10/02/2023 [facility]. [address] [place] [address] [phone] Cholesterol 160 mg/dL 0-200 1 Triglyceride 247 mg/dL High 0-150 2 HDLD 57 mg/dL See Comment 3 Measured LDL 82 mg/dL 0-130 4 Calc VLDL 49.4 mg/dL See Comment 5 Chol/HDL 2.8 RATIO See Comment 6 Non-HDL 103 mg/dL See Comment 7 Hepatic 10/02/2023 [facility]. [address] [place] [address] [phone] D.Bilirubin 0.1 mg/dL 0.0-0.3 CBC W/Diff 10/02/2023 [facility]. [address] [place] [address] [phone] WBC 6.1 10^3/M3 3.1-9.2 RBC 3.90 10^6/M3 3.70-5.50 HGB 12.0 GR/DL 11.5-16.1 HCT 35.1 % 34.5-47.8 MCV 90.1 CUMICR 82.6-95.8 MCH 30.8 PICOGR 27.9-32.9 MCHC 34.2 % 32.6-35.4 RDW 13.2 % 11.4-14.6 PLT 230 10^3/M3 140-350 MPV 9.7 CUMICR 7.0-10.6 %Neut 55.4 % 40.0-75.0 %Lymph 32.9 % 17.0-45.0 %[place] 6.8 % 1.0-11.0 %Eos 4.1 % 0.0-6.0 %Baso 0.8 % 0.0-2.0 #Neut 3.4 10^3/M3 1.5-8.0 #Lymph 2.0 10^3/M3 0.8-3.2 #[place] 0.4 10^3/M3 0.0-0.8 #Eos 0.2 10^3/m3 0.0-0.4 #Baso 0.0 10^3/m3 0.0-0.2 Urinalysis 10/02/2023 [facility]. [address] [place] [address] [phone] Color COMMENT 8 Appearance COMMENT Clear Spec.Grav. COMMENT 1.005-1.025 Leukocytes COMMENT Negative Nitrite COMMENT Negative PH COMMENT 6.0-7.5 Protein COMMENT Negative Urine Glucose COMMENT Negative Ketone COMMENT Negative Urobilinogen COMMENT E.U./DL Normal Bilirubin COMMENT Negative Blood COMMENT Negative WBC-U COMMENT /HPF 0-5/HPF RBC-U COMMENT /HPF 0-5/HPF Bacteria COMMENT None Seen Squamous COMMENT /HPF 0-5/HPF Laboratory test finding 08/29/2023 [facility]. [address] [place] [address] [phone] C-Reactive Prot 0.069 mg/dL 0.000-0.700 9 CBC W/Diff 08/29/2023 [facility]. [address] [place] [address] [phone] WBC 6.9 10^3/M3 3.1-9.2 RBC 3.78 10^6/M3 3.70-5.50 HGB 11.8 GR/DL 11.5-16.1 HCT 33.9 % Low 34.5-47.8 MCV 89.8 CUMICR 82.6-95.8 MCH 31.2 PICOGR 27.9-32.9 MCHC 34.8 % 32.6-35.4 RDW 13.4 % 11.4-14.6 PLT 233 10^3/M3 140-350 MPV 9.5 CUMICR 7.0-10.6 %Neut 65.0 % 40.0-75.0 %Lymph 25.8 % 17.0-45.0 %[place] 5.6 % 1.0-11.0 %Eos 2.9 % 0.0-6.0 %Baso 0.7 % 0.0-2.0 #Neut 4.5 10^3/M3 1.5-8.0 #Lymph 1.8 10^3/M3 0.8-3.2 #[place] 0.4 10^3/M3 0.0-0.8 #Eos 0.2 10^3/m3 0.0-0.4 #Baso 0.1 10^3/m3 0.0-0.2 Comp. Met 08/29/2023 [facility]. [address] [place] [address] [phone] Glucose 105 mg/dL 70-110 BUN 25 mg/dL 6-25 Creatinine 1.2 mg/dL 0.5-1.2 Sodium 146 mEq/L High 135-145 Potassium 3.3 mEq/L Low 3.5-5.0 Chloride 113 mEq/L High 95-107 Co-2 24 mEq/L 24-31 Alk Phos 38 IU/L Low 43-122 Alt(SGPT) 31 IU/L 10-40 Ast(Sgot) 34 IU/L 3-42 T.Bilirubin 0.4 mg/dL 0.1-1.3 Calcium 9.4 mg/dL 8.5-10.6 Tot.Protein 6.5 g/dL 5.8-8.0 Albumin 4.1 g/dL 3.0-5.2 Globulin 2.4 g/dL 2.0-3.4 GFR 48 ML/MIN/1.73SQM Low >60 Laboratory test finding 08/29/2023 [facility]. [address] [place] [address] [phone] Sed Rate 12 0-20 Folate 16.4 ng/mL High 3.0-16.0 10 VB12 473 pg/mL 230-1050 11 Urinalysis,Cult If Indicated 07/25/2023 [facility]. [address] [place] [address] [phone] RFLX Culture NO Urinalysis 07/25/2023 [facility]. [address] [place] [address] [phone] Color LIGHT-YEL LOW Appearance CLEAR Clear Spec.Grav. 1.015 1.005-1.025 Leukocytes TRACE Abnormal Negative Nitrite NEGATIVE Negative PH 5.5 Low 6.0-7.5 Protein NEGATIVE Negative Urine Glucose NEGATIVE Negative Ketone NEGATIVE Negative Urobilinogen NORMAL E.U./DL Normal Bilirubin NEGATIVE Negative Blood NEGATIVE Negative WBC-U 0-2 /HPF 0-5/HPF RBC-U 3-5 /HPF 0-5/HPF Bacteria NONE SEEN None Seen Squamous 3-5 /HPF 0-5/HPF Caox Crystal 2+ /HPF Abnormal Not Present 1 CHOLESTEROL Less than 200mg/dl Low risk 201-239 mg/dl Borderline risk Equal to or greater 240mg/dl High risk 2 TRIGLYCERIDES Less than 150mg/dl Normal 150-199mg/dl Borderline 200-499mg/dl High Greater than 500mg/dl Very High 3 HDL <40mg/dl Elevated Risk 41-59mg/dl Risk >=60mg/dl Least Risk 4 LDL <100mg/dl Optimal 100-129mg/dl Near Optimal 130-159mg/dl Borderline High 160-189mg/dl High >=190 Very High 5 VLDL Less than 30mg/dl Normal 6 CHOL/HDL <4.0 Optimal 4.0-5.0 Borderline >6.0 High Risk 7 NON-HDL 30mg/dl higher than LDL Target 8 PATIENT COULD NOT GI VE SAMPLE FOR UA, WILL GIVE SAMPLE AT APPOINTMENT ON FRIDAY. 10/02/23 TL 9 Rajni Busch 10 FOLATE COMMENT SERUM FOLATE LEVELS >20.0 MG/DL ARE NOT DILUTED AND REANALYZED. ELEVATED FOLATE LEVELS ARE NOT CONSIDERED TOXIC. 11 REPORT FAXED TO DOCT OR, REQUESTED ON REQUISITION.09/01/23 Procedures Date Code Description Status 10/10/2023 G2211 Continuation of care e/m vis it add on Completed 10/10/2023 3079F PVRP Diastolic BP 80-89 MMHG Completed 10/10/2023 3077F PVRP Systolic BP >/= 140 MMH G Completed 10/02/2023 49810 Venipuncture Routine Complet ed 08/29/2023 90105 Venipuncture Routine Complet ed 01/31/2021 [id number] Colonoscopy Completed Medical Devices Description No Information Available Encounters Type Date Location Provider Dx Diagnosis Office Visit 12/29/2023 1:00p HARSHIL Byrne Z01.818 Encounter for other preprocedural examination Office Visit 10/10/2023 11:45a HARSHIL Byrne N18.32 Chronic kidney disease, stage 3b I10 Essential (primary) hypertension K21.9 Gastro-esophageal re flux disease without esophagitis K50.00 Crohn's disease of s mall intestine without complications E78.2 Mixed hyperlipidemia E03.8 Other specified hypo thyroidism F33.0 Major depressive dis order, recurrent, mild Assessments Date Code Description Provider 12/29/2023 Z01.818 Encounter for ot her preprocedural examination HARSHIL Decker 10/10/2023 N18.32 Chronic kidney disease, stag e 3b HARSHIL Decker 10/10/2023 I10 Essential (primary) hyperten con HARSHIL Decker 10/10/2023 K21.9 Gastro-esophagea l reflux disease without esophagitis HARSHIL Decker 10/10/2023 K50.00 Crohn's disease of small intestine without complications HARSHIL Decker 10/10/2023 E78.2 Mixed hyperlipidemia HARSHIL Inman 10/10/2023 E03.8 Other specified hypothyroidi HARSHIL Flannery 10/10/2023 F33.0 Major depressive disorder, r ecurrent, mild HARSHIL Decker 10/02/2023 K50.00 Crohn's disease of small intestine without complications HARSHIL Decker 10/02/2023 E03.8 Other specified hypothyroidi HARSHIL Flannery 10/02/2023 E78.2 Mixed hyperlipidemia HARSHIL Inman 10/02/2023 N18.32 Chronic kidney disease, stag e 3b HARSHIL Decker 08/29/2023 K50.00 Crohn's disease of small intestine without complications Cedric Gregorio, DO 08/29/2023 K50.00 Crohn's disease of small intestine without complications [facility] 07/25/2023 N18.30 Chronic kidney d isease, stage 3 unspecified Jb Moreno, DO 07/25/2023 N18.30 Chronic kidney d isease, stage 3 unspecified Lab - [facility] 07/25/2023 L12.9 Pemphigoid, unspecified [facility] - [facility] 07/25/2023 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
--- OUTSIDE RECORDS SUMMARY | 2024-01-10 09:57 | External Medical Summary | Continuity of Care Document ---
Author Name Unknown Organization [facility] Address [address] [place] [address] Phone [phone] Care Team Providers Care Model And Dye Person Name Role Phone Karan Sainz MD Care Team Information Receiv er [phone] [facility] Care Team Information Electrical Engineering Designer [phone] Problems Active Problems Provider Date Essential hypertension [...] Qnty Indications Order ing Provider Date Levothyroxine Tnafys026gws Capsules Take 1 Tablet Daily 90caps E03.8 HARSHIL Decker 10/10/2023 Lctdlqnpbr23wt Tablets take 1 capsule daily 90tabs K21.9 HARSHIL Decker 04/04/2023 Venlafaxine HCL ER37.5mg Caps ER 24HR Take 1 Capsule Daily With A 75 MG Capsule 90caps F33.0 HARSHIL Decker 07/31/2021 Amlodipine Ujipcyyz15rn Tablets take 1 tablet daily 90tabs I10 HARSHIL Decker 06/21/2021 Grizsrgnfpyu970ts Tablets one pill by mouth one hour prior to dental work 1tabs HARSHIL Decker 08/18/2020 Pvirptgpttw626at Tablets take 1 tablet daily 90tabs E78.2 HARSHIL Decker 07/31/2020 Venlafaxine HCL ER75mg Caps ER 24HR Take 1 Capsule Daily 90caps F33.0 HARSHIL Decker 04/27/2018 Zbekcyadny10vi Tablets Take 1 Tablet Daily 90tabs I10 HARSHIL Decker 07/17/2009 Lzxuxpm161lc Capsules ER 2 tabs four times a day 720caps K50.00 HARSHIL Decker 09/15/1999 MultivitaminsTablets 1 po qd otc Unknown Vitamin C500mg Capsules 1 by mouth every day Unknown Hwtzexfksugmw082ga Tablets 2 tabs up to three times a day as needed for pain Unknown Calcium 500 + I827-848jy-Ruxu Tablets 1 by mouth twice a day Unknown Vcteylqstetr49bg Tablets 75 mg daily K50.00 Unk nown Cwdwbfanbx1xi Caps DR Part Take 3 Capsules By Mouth In The Morning Rajni Blackman PA-C Immunizations CPT Code Status Date Vaccine Lot # [id number] Given 07/29/2023 Influenza Virus Vaccine, Quadrivalent (Cciiv4), Derived From Cell 40273 Given 07/30/2022 Influenza Virus Vaccine, Quadrivalent (Cciiv4), Derived From Cell 71531 Given 07/31/2021 Influenza Virus Vaccine, Quadrivalent (Cciiv4), Derived From Cell 99268 Given 01/06/2021 Moderna Sars-Co v-2 (Cov-19) vacc,100 mcg/ 0.5 mL 12Y+EMR Doc Only [id number] 11924 Given 12/09/2020 Moderna Sars-Co v-2 (Cov-19) vacc,100 mcg/ 0.5 mL 12Y+EMR Doc Only [id number] 65795 Given 06/09/2020 Influenza Virus Vaccine, Quadrivalent, Im Use [id number] 96185 Given 08/17/2018 Influenza Virus Vaccine, Quadrivalent, Im Use [id number] 91263 Given 08/04/2017 Influenza Virus Vaccine, Quadrivalent, Im Use [id number] 62584 Given 05/21/2016 Influenza Virus Vaccine, Quadrivalent, Im Use [id number] 39334 Given 07/11/2015 Influenza Virus Vaccine, Quadrivalent, Im Use [id number] 71184 Given 12/01/2002 Hep B Adult Vac 87420 Given 06/14/2002 Hep B Adult Vac 22231 Given 05/11/2002 Hep B Adult Vac 65713 Refused 10/10/2023 Shingrix 83567 Refused 05/23/2023 Influenza Virus Vaccine, Quadrivalent (Cciiv4), Derived From Cell 37255 Refused 05/23/2023 Moderna Sars-Co v-2 (Covid-19) Vaccine, BiValent Booster [id number] 08112 Refused 08/23/2022 Shingrix 38441 Refused 04/08/2022 Moderna Sars-Co v-2 (Cov-19) vacc,100 mcg/ 0.5 mL 12Y+EMR Doc Only 05456 Refused 04/13/2021 Shingrix 26140 Refused 07/31/2020 Tdap (Tetanus, diphtheria & acel. pertussis) Adacel or Boostrix 50967 Refused 03/30/2020 Shingrix 24559 Refused 07/08/2019 Tdap (Tetanus, diphtheria & acel. pertussis) Adacel or Boostrix 11552 Refused 04/14/2018 Tdap (Tetanus, diphtheria & acel. pertussis) Adacel or Boostrix 87514 Refused 03/16/2018 Shingrix 62200 Refused 03/25/2017 Tdap (Tetanus, diphtheria & acel. pertussis) Adacel or Boostrix 60352 Refused 03/13/2016 Tdap (Tetanus, diphtheria & acel. pertussis) Adacel or Boostrix 95058 Refused 10/20/2014 Influenza Virus Vaccine, Quadrivalent, Im Use 35338 Refused 07/13/2013 Influenza Vac, Split 3 Yr [...] 5'4" BMI (Body Mass Index) 34.0 kg/m2 [place] Body Weight 120 lb 10/10/2023 11:25am BP Systolic 146 mmHg BP Diastolic 82 mmHg BP Systolic Recheck 144 mmHg BP Diastolic Recheck 84 mmHg Body Temperature 97.5 F Heart Rate 92 /min Respiratory Rate 20 /min Weight 193.00 lb Weight 87.545 kg Height 64 inches 5'4" BMI (Body Mass Index) 33.1 kg/m2 [place] Body Weight 120 lb Results Test Acquired Date Facility Test Result H/L Range N ote Urinalysis 10/10/[address] [facility]. [address] [place] [address] [phone] Color ORANGE Abnormal Appearance TURBID Abnormal Clear [...] Abnormal Not Present General Health Panel 10/02/[address] [facility]. [address] [place], [place] [id number] [phone] TSH 7.59 uIU/mL High 0.50-6.00 Comp. Met 10/02/[address] [facility] [address] [place] [address] [phone] Glucose 92 mg/dL 70-110 BUN 24 mg/dL [...] GFR 53 ML/MIN/1.73SQM Low >60 Lipid 10/02/[address] [facility]. [address] [place] [address] [phone] Cholesterol 160 mg/dL 0-200 1 Triglyceride 247 mg/dL High 0-150 2 HDLD 57 mg/dL See Comment 3 Measured LDL 82 mg/dL 0-130 4 Calc VLDL 49.4 mg/dL See Comment 5 Chol/HDL 2.8 RATIO See Comment 6 Non-HDL 103 mg/dL See Comment 7 Hepatic 10/02/[address] [facility]. [address] [place] [address] [phone] D.Bilirubin 0.1 mg/dL 0.0-0.3 CBC W/Diff 10/02/[address] [facility] [address] [place] [address] [phone] WBC 6.1 10^3/M3 3.1-9.2 RBC 3.90 10^6/M3 3.70-5.50 HGB 12.0 GR/DL 11.5-16.1 HCT 35.1 % 34.5-47.8 MCV 90.1 CUMICR 82.6-95.8 MCH 30.8 PICOGR 27.9-32.9 MCHC 34.2 % 32.6-35.4 RDW 13.2 % 11.4-14.6 PLT 230 10^3/M3 140-350 MPV 9.7 CUMICR 7.0-10.6 %Neut 55.4 % 40.0-75.0 %Lymph 32.9 % 17.0-45.0 %[place] 6.8 % 1.0-11.0 %Eos 4.1 % 0.0-6.0 %Baso 0.8 % 0.0-2.0 #Neut 3.4 10^3/M3 1.5-8.0 #Lymph 2.0 10^3/M3 0.8-3.2 #[place] 0.4 10^3/M3 0.0-0.8 #Eos 0.2 10^3/m3 0.0-0.4 #Baso 0.0 10^3/m3 0.0-0.2 Urinalysis 10/02/[address] [facility] [address] [place], [place] [id number] [phone] Color COMMENT 8 Appearance COMMENT Clear Spec.Grav. COMMENT 1.005-1.025 Leukocytes COMMENT Negative Nitrite COMMENT Negative PH COMMENT 6.0-7.5 Protein COMMENT Negative Urine Glucose COMMENT Negative Ketone COMMENT Negative Urobilinogen COMMENT E.U./DL Normal Bilirubin COMMENT Negative Blood COMMENT Negative WBC-U COMMENT /HPF 0-5/HPF RBC-U COMMENT /HPF 0-5/HPF Bacteria COMMENT None Seen Squamous COMMENT /HPF 0-5/HPF Laboratory test finding 08/29/[address] [facility] [address] [place], [place] [id number] [phone] C-Reactive Prot 0.069 mg/dL 0.000-0.700 9 CBC W/Diff 08/29/[address] [facility] [address] [place], [place] [address] [phone] WBC 6.9 10^3/M3 3.1-9.2 RBC 3.78 10^6/M3 3.70-5.50 HGB 11.8 GR/DL 11.5-16.1 HCT 33.9 % Low 34.5-47.8 MCV 89.8 CUMICR 82.6-95.8 MCH 31.2 PICOGR 27.9-32.9 MCHC 34.8 % 32.6-35.4 RDW 13.4 % 11.4-14.6 PLT 233 10^3/M3 140-350 MPV 9.5 CUMICR 7.0-10.6 %Neut 65.0 % 40.0-75.0 %Lymph 25.8 % 17.0-45.0 %[place] 5.6 % 1.0-11.0 %Eos 2.9 % 0.0-6.0 %Baso 0.7 % 0.0-2.0 #Neut 4.5 10^3/M3 1.5-8.0 #Lymph 1.8 10^3/M3 0.8-3.2 #[place] 0.4 10^3/M3 0.0-0.8 #Eos 0.2 10^3/m3 0.0-0.4 #Baso 0.1 10^3/m3 0.0-0.2 Comp. Met 08/29/[address] [facility] [address] [place] [address] [phone] Glucose 105 mg/dL 70-110 BUN 25 mg/dL [...] ML/MIN/1.73SQM Low >60 Laboratory test finding 08/29/2023 [facility]. [address] [place] [address] [phone] Sed Rate 12 0-20 Folate 16.4 ng/mL High 3.0-16.0 10 VB12 473 pg/mL 230-1050 11 Urinalysis,Cult If Indicated 07/25/[address] [facility] [address] [place] [address] [phone] RFLX Culture NO Urinalysis 07/25/[address] [facility]. [address] [place] [address] [phone] Color LIGHT-YEL LOW Appearance CLEAR Clear Spec.Grav. [...] APPOINTMENT ON FRIDAY. 10/02/23 TL 9 Rajni Bushc 10 FOLATE COMMENT SERUM FOLATE LEVELS >20.0 [...] BP >/= 140 [facility] G Completed 10/02/2023 14963 Venipuncture Routine Complet ed 08/29/2023 90252 Venipuncture Routine [facility] ed 01/31/2021 [id number] Colonoscopy Completed Medical Devices Description No Information [...] HARSHIL Inman 10/10/2023 E03.8 Other specified hypothyroidi sm HARSHIL Decker 10/10/2023 F33.0 Major depressive disorder, r ecurrent, [...] Crohn's disease of small intestine without complications [facility] 07/25/2023 N18.30 Chronic kidney d isease, stage 3 unspecified Jb Moreno, DO 07/25/2023 N18.30 Chronic kidney d isease, stage 3 unspecified [facility] 07/25/2023 L12.9 Pemphigoid, unspecified [facility] 07/25/2023 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
--- OUTSIDE RECORDS SUMMARY | 2024-01-10 09:57 | External Medical Summary | Continuity of Care Document ---
Author Name Unknown Organization [facility] Address [address] [place] [address] Phone [phone] Care Team Providers Care Clinical Recruiter Name Role Phone Karan Sainz MD Care Team Information Receiv er [phone] [facility] - [facility] Medicine Care Team Information Cane Piler [phone] Problems Active Problems Provider Date Essential hypertension [...] Qnty Indications Order ing Provider Date Levothyroxine [id number] Capsules Take 1 Tablet Daily 90caps E03.8 HARSHIL Decker 10/10/2023 Xsibcjzkhq40gf Tablets take 1 capsule daily 90tabs K21.9 HARSHIL Decker 04/04/2023 Venlafaxine HCL ER37.5mg Caps ER 24HR 1 by mouth every day with a 75 mg capsule 90caps F33.0 HARSHIL Decker 07/31/2021 Amlodipine Lznpieqg05ph Tablets take 1 tablet daily 90tabs I10 HARSHIL Decker 06/21/2021 Szwwnwndcfdg240gd Tablets one pill by mouth one hour prior to dental work 1tabs HARSHIL Decker 08/18/2020 Lzbnugnenxu252ok Tablets take 1 tablet daily 90tabs E78.2 HARSHIL Decker 07/31/2020 Venlafaxine HCL ER75mg Caps ER 24HR Take 1 Capsule Daily 90caps F33.0 HARSHIL Decker 04/27/2018 Qfhzzprfby77so Tablets Take 1 Tablet Daily 90tabs I10 HARSHIL Decker 07/17/2009 Wypwllg081he Capsules ER 2 tabs four times a day 720caps K50.00 HARSHIL Decker 09/15/1999 MultivitaminsTablets 1 po qd otc Unknown Vitamin C500mg Capsules 1 by mouth every day Unknown Whwezxaaryxxm361vh Tablets 2 tabs up to three times a day as needed for pain Unknown Calcium 500 + [id number] Tablets 1 by mouth twice a day Unknown Gilnongttehh70wk Tablets 75 mg daily K50.00 Unk nown Lrhhjsjjvy9hg Caps DR Part Take 3 Capsules By Mouth In The Morning Rajni Blackman PA-C Immunizations CPT Code Status Date Vaccine Lot # [id number] Given 07/29/2023 Influenza Virus Vaccine, Quadrivalent (Cciiv4), Derived From Cell 39977 Given 07/30/2022 Influenza Virus Vaccine, Quadrivalent (Cciiv4), Derived From Cell 57235 Given 07/31/2021 Influenza Virus Vaccine, Quadrivalent (Cciiv4), Derived From Cell 55004 Given 01/06/2021 Moderna Sars-Co v-2 (Cov-19) vacc,100 mcg/ 0.5 mL 12Y+EMR Doc Only [id number] 04409 Given 12/09/2020 Moderna Sars-Co v-2 (Cov-19) vacc,100 mcg/ 0.5 mL 12Y+EMR Doc Only [id number] 87537 Given 06/09/2020 Influenza Virus Vaccine, Quadrivalent, Im Use [id number] 80312 Given 08/17/2018 Influenza Virus Vaccine, Quadrivalent, Im Use [id number] 70946 Given 08/04/2017 Influenza Virus Vaccine, Quadrivalent, Im Use [id number] 34584 Given 05/21/2016 Influenza Virus Vaccine, Quadrivalent, Im Use [id number] 79732 Given 07/11/2015 Influenza Virus Vaccine, Quadrivalent, Im Use [id number] 66076 Given 12/01/2002 Hep B Adult Vac 97043 Given 06/14/2002 Hep B Adult Vac 71736 Given 05/11/2002 Hep B Adult Vac [id number] Refused 10/10/2023 Shingrix 47945 Refused 05/23/2023 Influenza Virus Vaccine, Quadrivalent (Cciiv4), Derived From Cell 10174 Refused 05/23/2023 Moderna Sars-Co v-2 (Covid-19) Vaccine, BiValent Booster [id number] 08829 Refused 08/23/2022 Shingrix 56424 Refused 04/08/2022 Moderna Sars-Co v-2 (Cov-19) vacc,100 mcg/ 0.5 mL 12Y+EMR Doc Only [id number] Refused 04/13/2021 Shingrix 39724 Refused 07/31/2020 Tdap (Tetanus, diphtheria & acel. pertussis) Adacel or Boostrix 42841 Refused 03/30/2020 Shingrix 11017 Refused 07/08/2019 Tdap (Tetanus, diphtheria & acel. pertussis) Adacel or Boostrix 55788 Refused 04/14/2018 Tdap (Tetanus, diphtheria & acel. pertussis) Adacel or Boostrix 85060 Refused 03/16/2018 Shingrix 63019 Refused 03/25/2017 Tdap (Tetanus, diphtheria & acel. pertussis) Adacel or Boostrix 70254 Refused 03/13/2016 Tdap (Tetanus, diphtheria & acel. pertussis) Adacel or Boostrix 19750 Refused 10/20/2014 Influenza Virus Vaccine, Quadrivalent, Im Use 61206 Refused 07/13/2013 Influenza Vac, Split 3 Yr [...] 5'4" BMI (Body Mass Index) 34.0 kg/m2 [place] Body Weight 120 lb 10/10/2023 11:25am BP Systolic 146 mmHg BP Diastolic 82 mmHg BP Systolic Recheck 144 mmHg BP Diastolic Recheck 84 mmHg Body Temperature 97.5 F Heart Rate 92 /min Respiratory Rate 20 /min Weight 193.00 lb Weight 87.545 kg Height 64 inches 5'4" BMI (Body Mass Index) 33.1 kg/m2 [place] Body Weight 120 lb Results Test Acquired Date Facility Test Result H/L Range N ote Urinalysis 10/10/2023 [facility]. [address] [place] [address] [phone] Color ORANGE Abnormal Appearance TURBID Abnormal Clear [...] Abnormal Not Present General Health Panel 10/02/2023 [facility]. [address] [place], [place] [id number] [phone] TSH 7.59 uIU/mL High 0.50-6.00 Comp. Met 10/02/2023 [facility]. [address] [place] [address] [phone] Glucose 92 mg/dL 70-110 BUN 24 mg/dL [...] GFR 53 ML/MIN/1.73SQM Low >60 Lipid 10/02/2023 [facility]. [address] [place] [address] [phone] Cholesterol 160 mg/dL 0-200 1 Triglyceride 247 mg/dL High 0-150 2 HDLD 57 mg/dL See Comment 3 Measured LDL 82 mg/dL 0-130 4 Calc VLDL 49.4 mg/dL See Comment 5 Chol/HDL 2.8 RATIO See Comment 6 Non-HDL 103 mg/dL See Comment 7 Hepatic 10/02/2023 [facility]. [address] [place] [address] [phone] D.Bilirubin 0.1 mg/dL 0.0-0.3 CBC W/Diff 10/02/2023 [facility]. [address] [place] [address] [phone] WBC 6.1 10^3/M3 3.1-9.2 RBC 3.90 10^6/M3 3.70-5.50 HGB 12.0 GR/DL 11.5-16.1 HCT 35.1 % 34.5-47.8 MCV 90.1 CUMICR 82.6-95.8 MCH 30.8 PICOGR 27.9-32.9 MCHC 34.2 % 32.6-35.4 RDW 13.2 % 11.4-14.6 PLT 230 10^3/M3 140-350 MPV 9.7 CUMICR 7.0-10.6 %Neut 55.4 % 40.0-75.0 %Lymph 32.9 % 17.0-45.0 %[place] 6.8 % 1.0-11.0 %Eos 4.1 % 0.0-6.0 %Baso 0.8 % 0.0-2.0 #Neut 3.4 10^3/M3 1.5-8.0 #Lymph 2.0 10^3/M3 0.8-3.2 #[place] 0.4 10^3/M3 0.0-0.8 #Eos 0.2 10^3/m3 0.0-0.4 #Baso 0.0 10^3/m3 0.0-0.2 Urinalysis 10/02/2023 [facility]. [address] [place] [address] [phone] Color COMMENT 8 Appearance COMMENT Clear Spec.Grav. COMMENT 1.005-1.025 Leukocytes COMMENT Negative Nitrite COMMENT Negative PH COMMENT 6.0-7.5 Protein COMMENT Negative Urine Glucose COMMENT Negative Ketone COMMENT Negative Urobilinogen COMMENT E.U./DL Normal Bilirubin COMMENT Negative Blood COMMENT Negative WBC-U COMMENT /HPF 0-5/HPF RBC-U COMMENT /HPF 0-5/HPF Bacteria COMMENT None Seen Squamous COMMENT /HPF 0-5/HPF Laboratory test finding 08/29/2023 [facility]. [address] [place] [address] [phone] C-Reactive Prot 0.069 mg/dL 0.000-0.700 9 CBC W/Diff 08/29/2023 [facility]. [address] [place] [address] [phone] WBC 6.9 10^3/M3 3.1-9.2 RBC 3.78 10^6/M3 3.70-5.50 HGB 11.8 GR/DL 11.5-16.1 HCT 33.9 % Low 34.5-47.8 MCV 89.8 CUMICR 82.6-95.8 MCH 31.2 PICOGR 27.9-32.9 MCHC 34.8 % 32.6-35.4 RDW 13.4 % 11.4-14.6 PLT 233 10^3/M3 140-350 MPV 9.5 CUMICR 7.0-10.6 %Neut 65.0 % 40.0-75.0 %Lymph 25.8 % 17.0-45.0 %[place] 5.6 % 1.0-11.0 %Eos 2.9 % 0.0-6.0 %Baso 0.7 % 0.0-2.0 #Neut 4.5 10^3/M3 1.5-8.0 #Lymph 1.8 10^3/M3 0.8-3.2 #[place] 0.4 10^3/M3 0.0-0.8 #Eos 0.2 10^3/m3 0.0-0.4 #Baso 0.1 10^3/m3 0.0-0.2 Comp. Met 08/29/2023 [facility]. [address] [place] [address] [phone] Glucose 105 mg/dL 70-110 BUN 25 mg/dL [...] ML/MIN/1.73SQM Low >60 Laboratory test finding 08/29/2023 [facility]. [address] [place] [address] [phone] Sed Rate 12 0-20 Folate 16.4 ng/mL High 3.0-16.0 10 VB12 473 pg/mL 230-1050 11 Urinalysis,Cult If Indicated 07/25/2023 [facility]. [address] [place] [address] [phone] RFLX Culture NO Urinalysis 07/25/2023 [facility]. [address] [place] [address] [phone] Color LIGHT-YEL LOW Appearance CLEAR Clear Spec.Grav. 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
--- OUTSIDE RECORDS SUMMARY | 2024-01-10 09:57 | External Medical Summary | Continuity of Care Document ---
Author Name Unknown Organization [facility] Address [address] [place] [address] Phone [phone] Care Team Providers Care Form Setter Steel Pan Forms Name Role Phone Karan Saizn MD Care Team Information Receiv er [phone] [facility] - [facility] Medicine Care Team Information Motor Overhauler [phone] Problems Active Problems Provider Date Essential hypertension [...] Qnty Indications Order ing Provider Date Levothyroxine Kqgovd526mrz Capsules Take 1 Tablet Daily 90caps E03.8 HARSHIL Decker 10/10/2023 Hhinpppmkd01aq Tablets take 1 capsule daily 90tabs K21.9 HARSHIL Decker 04/04/2023 Venlafaxine HCL ER37.5mg Caps ER 24HR 1 by mouth every day with a 75 mg capsule 90caps F33.0 HARSHIL Decker 07/31/2021 Amlodipine Amwbryrm68rf Tablets take 1 tablet daily 90tabs I10 HARSHIL Decker 06/21/2021 Efplclwrxaji744la Tablets one pill by mouth one hour prior to dental work 1tabs HARSHIL Decker 08/18/2020 Vpyianmbbet264kt Tablets take 1 tablet daily 90tabs E78.2 HARSIHL Decker 07/31/2020 Venlafaxine HCL ER75mg Caps ER 24HR Take 1 Capsule Daily 90caps F33.0 HARSHIL Decker 04/27/2018 Hooiltasga16vx Tablets Take 1 Tablet Daily 90tabs I10 HARSHIL Decker 07/17/2009 Kudnzkg981zl Capsules ER 2 tabs four times a day 720caps K50.00 HARSHIL Decker 09/15/1999 MultivitaminsTablets 1 po qd otc Unknown Vitamin C500mg Capsules 1 by mouth every day Unknown Zwsympyxxvuxd408ng Tablets 2 tabs up to three times a day as needed for pain Unknown Calcium 500 + [id number]-Aiaf Tablets 1 by mouth twice a day Unknown Gyzrpiqczity08id Tablets 75 mg daily K50.00 Unk nown Rburefvkbj3es Caps DR Part Take 3 Capsules By Mouth In The Morning Rajni Blackman PA-C Immunizations CPT Code Status Date Vaccine Lot # [id number] Given 07/29/2023 Influenza Virus Vaccine, Quadrivalent (Cciiv4), Derived From Cell 66424 Given 07/30/2022 Influenza Virus Vaccine, Quadrivalent (Cciiv4), Derived From Cell 72543 Given 07/31/2021 Influenza Virus Vaccine, Quadrivalent (Cciiv4), Derived From Cell 49827 Given 01/06/2021 Moderna Sars-Co v-2 (Cov-19) vacc,100 mcg/ 0.5 mL 12Y+EMR Doc Only [id number] 13769 Given 12/09/2020 Moderna Sars-Co v-2 (Cov-19) vacc,100 mcg/ 0.5 mL 12Y+EMR Doc Only [id number] 40590 Given 06/09/2020 Influenza Virus Vaccine, Quadrivalent, Im Use [id number] 06452 Given 08/17/2018 Influenza Virus Vaccine, Quadrivalent, Im Use [id number] 09210 Given 08/04/2017 Influenza Virus Vaccine, Quadrivalent, Im Use [id number] 73983 Given 05/21/2016 Influenza Virus Vaccine, Quadrivalent, Im Use [id number] 63492 Given 07/11/2015 Influenza Virus Vaccine, Quadrivalent, Im Use [id number] 13022 Given 12/01/2002 Hep B Adult Vac 76354 Given 06/14/2002 Hep B Adult Vac 77242 Given 05/11/2002 Hep B Adult Vac 76179 Refused 10/10/2023 Shingrix 94311 Refused 05/23/2023 Influenza Virus Vaccine, Quadrivalent (Cciiv4), Derived From Cell 49863 Refused 05/23/2023 Moderna Sars-Co v-2 (Covid-19) Vaccine, BiValent Booster [id number] [id number] Refused 08/23/2022 Shingrix 54348 Refused 04/08/2022 Moderna Sars-Co v-2 (Cov-19) vacc,100 mcg/ 0.5 mL 12Y+EMR Doc Only 63612 Refused 04/13/2021 Shingrix 20336 Refused 07/31/2020 Tdap (Tetanus, diphtheria & acel. pertussis) Adacel or Boostrix 82677 Refused 03/30/2020 Shingrix 78692 Refused 07/08/2019 Tdap (Tetanus, diphtheria & acel. pertussis) Adacel or Boostrix 08612 Refused 04/14/2018 Tdap (Tetanus, diphtheria & acel. pertussis) Adacel or Boostrix 64499 Refused 03/16/2018 Shingrix 91659 Refused 03/25/2017 Tdap (Tetanus, diphtheria & acel. pertussis) Adacel or Boostrix 51516 Refused 03/13/2016 Tdap (Tetanus, diphtheria & acel. pertussis) Adacel or Boostrix 64377 Refused 10/20/2014 Influenza Virus Vaccine, Quadrivalent, Im Use 92434 Refused 07/13/2013 Influenza Vac, Split 3 Yr [...] 5'4" BMI (Body Mass Index) 34.0 kg/m2 [place] Body Weight 120 lb 10/10/2023 11:25am BP Systolic 146 mmHg BP Diastolic 82 mmHg BP Systolic Recheck 144 mmHg BP Diastolic Recheck 84 mmHg Body Temperature 97.5 F Heart Rate 92 /min Respiratory Rate 20 /min Weight 193.00 lb Weight 87.545 kg Height 64 inches 5'4" BMI (Body Mass Index) 33.1 kg/m2 [place] Body Weight 120 lb Results Test Acquired Date Facility Test Result H/L Range N ote Urinalysis 10/10/2023 [facility]. [address] [place] [address] [phone] Color ORANGE Abnormal Appearance TURBID Abnormal Clear [...] Abnormal Not Present General Health Panel 10/02/2023 [facility]. [address] [place], [place] [id number] [phone] TSH 7.59 uIU/mL High 0.50-6.00 Comp. Met 10/02/2023 [facility]. [address] [place] [address] [phone] Glucose 92 mg/dL 70-110 BUN 24 mg/dL [...] GFR 53 ML/MIN/1.73SQM Low >60 Lipid 10/02/2023 [facility]. [address] [place] [address] [phone] Cholesterol 160 mg/dL 0-200 1 Triglyceride 247 mg/dL High 0-150 2 HDLD 57 mg/dL See Comment 3 Measured LDL 82 mg/dL 0-130 4 Calc VLDL 49.4 mg/dL See Comment 5 Chol/HDL 2.8 RATIO See Comment 6 Non-HDL 103 mg/dL See Comment 7 Hepatic 10/02/2023 [facility]. [address] [place] [address] [phone] D.Bilirubin 0.1 mg/dL 0.0-0.3 CBC W/Diff 10/02/2023 [facility]. [address] [place] [address] [phone] WBC 6.1 10^3/M3 3.1-9.2 RBC 3.90 10^6/M3 3.70-5.50 HGB 12.0 GR/DL 11.5-16.1 HCT 35.1 % 34.5-47.8 MCV 90.1 CUMICR 82.6-95.8 MCH 30.8 PICOGR 27.9-32.9 MCHC 34.2 % 32.6-35.4 RDW 13.2 % 11.4-14.6 PLT 230 10^3/M3 140-350 MPV 9.7 CUMICR 7.0-10.6 %Neut 55.4 % 40.0-75.0 %Lymph 32.9 % 17.0-45.0 %[place] 6.8 % 1.0-11.0 %Eos 4.1 % 0.0-6.0 %Baso 0.8 % 0.0-2.0 #Neut 3.4 10^3/M3 1.5-8.0 #Lymph 2.0 10^3/M3 0.8-3.2 #[place] 0.4 10^3/M3 0.0-0.8 #Eos 0.2 10^3/m3 0.0-0.4 #Baso 0.0 10^3/m3 0.0-0.2 Urinalysis 10/02/2023 [facility]. [address] [place] [address] [phone] Color COMMENT 8 Appearance COMMENT Clear Spec.Grav. COMMENT 1.005-1.025 Leukocytes COMMENT Negative Nitrite COMMENT Negative PH COMMENT 6.0-7.5 Protein COMMENT Negative Urine Glucose COMMENT Negative Ketone COMMENT Negative Urobilinogen COMMENT E.U./DL Normal Bilirubin COMMENT Negative Blood COMMENT Negative WBC-U COMMENT /HPF 0-5/HPF RBC-U COMMENT /HPF 0-5/HPF Bacteria COMMENT None Seen Squamous COMMENT /HPF 0-5/HPF Laboratory test finding 08/29/2023 [facility]. [address] [place] [address] [phone] C-Reactive Prot 0.069 mg/dL 0.000-0.700 9 CBC W/Diff 08/29/2023 [facility]. [address] [place] [address] [phone] WBC 6.9 10^3/M3 3.1-9.2 RBC 3.78 10^6/M3 3.70-5.50 HGB 11.8 GR/DL 11.5-16.1 HCT 33.9 % Low 34.5-47.8 MCV 89.8 CUMICR 82.6-95.8 MCH 31.2 PICOGR 27.9-32.9 MCHC 34.8 % 32.6-35.4 RDW 13.4 % 11.4-14.6 PLT 233 10^3/M3 140-350 MPV 9.5 CUMICR 7.0-10.6 %Neut 65.0 % 40.0-75.0 %Lymph 25.8 % 17.0-45.0 %[place] 5.6 % 1.0-11.0 %Eos 2.9 % 0.0-6.0 %Baso 0.7 % 0.0-2.0 #Neut 4.5 10^3/M3 1.5-8.0 #Lymph 1.8 10^3/M3 0.8-3.2 #[place] 0.4 10^3/M3 0.0-0.8 #Eos 0.2 10^3/m3 0.0-0.4 #Baso 0.1 10^3/m3 0.0-0.2 Comp. Met 08/29/2023 [facility]. [address] [place] [address] [phone] Glucose 105 mg/dL 70-110 BUN 25 mg/dL [...] ML/MIN/1.73SQM Low >60 Laboratory test finding 08/29/2023 [facility]. [address] [place] [address] [phone] Sed Rate 12 0-20 Folate 16.4 ng/mL High 3.0-16.0 10 VB12 473 pg/mL 230-1050 11 Urinalysis,Cult If Indicated 07/25/2023 [facility]. [address] [place] [address] [phone] RFLX Culture NO Urinalysis 07/25/2023 [facility]. [address] [place] [address] [phone] Color LIGHT-YEL LOW Appearance CLEAR Clear Spec.Grav. 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
[2024-01-10] MEDS: traMADol HCL 50 MG TABLET PO PRN (11:43)
[2024-01-11] MEDS: ACETAMINOPHEN 500 MG TAB PO PRN (02:23)
--- NOTE | 2024-01-11 09:49 | Orthopedic Progress Note ---
Date of Service January 11, 2024 Assessment & Plan (1) Neurogenic claudication due to lumbar spinal stenosis: Plan: At this time continue physical therapy monitor her progress anticipate discharge home tomorrow. Admission and Anticipated Discharge Date Admission Date: January 09, 2024 Subjective Back pain controlled leg pain markedly improved Physical Exam Physical Exam: Patient is in the chair at the bedside. She is comfortable. Is good strength testing. Results & Data Vital Signs (Past 12 Hours) Vital Signs Temp Pulse Resp BP Pulse Ox O2 Del Method 01/11/24 07:44 37.0 C 100 H 16 91/57 L 96 Room Air Queries Orthopedic Spine Obesity: Yes
--- NOTE | 2024-01-12 10:31 | Discharge Summary ---
Date of Service January 12, 2024 Admission HPI Per Admitting Provider This is a 63-year-old female who presents with chronic persistent back and leg pain and failing since course of nonoperative care is here for surgical invention. Principal Diagnosis Lumbar spinal stenosis with neurogenic claudication Discharge Data Allergies Allergy/AdvReac Type Severity Reaction Status Date / Time metoclopramide [From Reglan] Allergy Severe Seizure Verified 01/09/24 10:11 Penicillins Allergy Unknown Hives Verified 01/09/24 10:11 Consultations 01/09/24 18:02 Consult Hospitalist Routine Procedures Performed Operation Date: 01/09/24 11:50 Actual Procedures p T12-L1 Decompression, L3-S1 Decompression and Fusion, Spinal Cord Monitoring(Not Applicable) - Ramiro Love DO Ordered Studies 01/09/24 11:50 [place] lumbar spine 2-3V Routine Hospital Course (1) Neurogenic claudication due to lumbar spinal stenosis: Patient underwent multilevel lumbar decompression fusion tolerated this well was taken to the orthopedic floor postoperative. Postop patient progressed appropriately. Pain well-controlled. Excellent strength testing. Subsidy discharged home. Discharge orders instructions from the chart for further review. Total Time Total Time Spent Total Time Spent (In Minutes): 20 minutes Discharge Plan Discharge Items Patient Disposition: Home - Self-Care Reason For Visit: POSTOP Discharge Diagnosis: Lumbar spinal stenosis with neurogenic claudication Activity: As commented below Non-emergency contact: Primary Care Provider Call non-emergency contact if: you have any medication questions Follow-up/Referrals: Terri Workman CRNP [Primary Care Provider] - Diet: Regular Addtl Attending Provider Instructions: ACTIVITY RECOMMENDATIONS: SELF CARE INSTRUCTIONS AFTER THORACIC/LUMBAR FUSIONS 1. You may walk to your tolerance. It is good exercise for your legs and back. Expect some back and intermittent leg aches and pains. 2. You may perform "counter-top" level activities (make a sandwich, anderson with a project, etc.). 3. No bending or lifting of more than 10 pounds or back twisting of any nature (roll like a log when turning in bed). 4. You may ride in a car for 20-30 minutes at a time. No driving until after your first visit with your doctor. 5. Frequent changes of position and restricting sitting to 30 minutes at a time will help limit the amount of back spasms and stiffness you may experience. 6. You may discontinue the use of ambulatory aids (cane, crutches, etc.) once your strength and confidence allow. 7. You may print support specialist the shower and let water strike your incision when you arrive home at least once daily. Do not take a tub bath, sit in a hot tub or go into a swimming pool until after your first recheck in the office. SPECIAL CARE INSTRUCTIONS: VERY IMPORTANT TO READ AND REVIEW A. Your surgical incision has been closed with a cosmetic suture under the skin that will dissolve in about 6 weeks. In 14 days, you can use a pair of clean scissors and cut the suture that is left outside of the skin at the ends of your incision. 1. The small skin tapes can be removed 7 days after surgery if they have not fallen off by that point. 2. You may keep the wound open to air as much as possible to promote healing after post-op day number 5 unless told otherwise by your doctor. 3. If you think the wound looks like it is becoming infected (redness or worsening drainage) and/or you are experiencing fever, chill or worsening back pain and muscle spasms, contact the office so that we may evaluate you as soon as possible. B. Complications are uncommon, but please contact us if you have any signs or symptoms of: 1. wound infection (fever higher than 102.5 degrees F, redness, separation of wound, drainage, or increasing pain from the incision) 2. blood clots in legs (pain, swelling, redness and warmth in legs) 3. urinary tract infection (fever higher than 102.5 degrees F, burning upon urination or increased frequency of urination) 4. nerve problems (inability to walk on your toes or heels, numbness, loss of bowel or bladder control) 5. any other symptoms that concern you C. Please call the office at if you have any concerns or questions about your operation or recovery. D. No smoking! Smoking drastically decreases the chance of a solid fusion. E. Do not take any anti-inflammatory medications (Indocin, Advil, Motrin, Aspirin, Naprosyn, etc.) as these may inhibit the chance of a solid fusion. Tylenol is okay to take for pain. MANAGING PAIN AFTER SPINAL SURGERY 1. Narcotic medication is intended for short-term use and will be provided for surgical pain. Surgical pain usually lasts for a period of 4-6 weeks. Narcotic medication includes Percocet, Vicodin, Darvocet, Tylenol #3 or Lortab. 2. Longer-term pain is more appropriately treated with non-narcotic medication such as Tylenol ES. 3. Muscle spasm is not appropriately treated with narcotics. Muscle relaxers such as Soma, Flexeril or Skelaxin can be used along with Tylenol ES. 4. Remember that we all live with some "aches and pains". This is not unusual or uncommon after an injury or as we get older. a. Back pain is expected and may include muscle spasms for 4 to 6 weeks after surgery. The pain should gradually improve. If the pain worsens for no apparent reason, please contact the office. b. Intermittent leg pain may also be experienced and should not be concerned about unless it worsens for no apparent reason. If so, please contact the office. 5. We will provide appropriate medication within the normal guidelines of their prescribed use. We will also be very cautious and aware of potential abuse and extended duration of patients' medication needs. a. Pain medications are for your comfort and to assist with sleep and rest so that the tissue can heal. They are not provided in order to return to normal activity and should not be used through the day. To do so or worsening pain at night can result from ongoing tissue damage and development of tolerance to the prescribed medicine. 6. Please allow 2-3 days to process refills. Prescriptions will not be mailed but must be picked up at the office. FOLLOW UP VISIT: Keep your scheduled follow-up appointment. Any questions, please call the office at . Pending Studies at Discharge: No Stand-Alone Forms: My [facility], Smoking Cessation Medications and DC Order Prescriptions: New tramadol 50 mg tablet 50 mg PO Q6H PRN (Reason: pain, moderate) Qty: 30 0RF oxycodone 5 mg tablet 5 mg PO Q6H PRN (Reason: pain) Qty: 30 0RF Continued levothyroxine [Synthroid] 137 mcg Tablet 137 mcg PO QAM magnesium 500 mg Tablet 500 mg PO QAM venlafaxine 75 mg Tablet 75 mg PO QAM meloxicam 15 mg Tablet 15 mg PO QAM famotidine [Pepcid] 40 mg Tablet 40 mg PO HS azathioprine 50 mg Tablet 75 mg PO QAM Patient Comments: pills are 50 mg , take 1 and half. calcium carbonate-vitamin D3 [Calcium + D] 600 mg-5 mcg (200 unit) Tablet 1 tab PO QAM Patient Comments: 1200 mg calcium and 25 mcg vitamin d potassium 99 mg Tablet 0 mg PO QAM amlodipine 10 mg Tablet 10 mg PO HS venlafaxine 37.5 mg Tablet 37.5 mg PO QAM Tylenol PM Extra Strength 25-500 mg Tablet 1 - 2 tab PO HS lisinopril 40 mg Tablet 40 mg PO HS multivitamin Capsule 1 cap PO QAM [place] 3 Capsule 1,000 mg PO QAM mesalamine 500 mg Capsule, Extended Release 1,000 mg PO QID fenofibrate 120 mg Tablet 145 mg PO QAM Glucosamine Chondroitin 550-30-1 mg Capsule 1 cap PO BID Discharge Orders: Discharge Order (Routine); Ordered 01/12/24 Ordered By: Ramiro Love Admission Data Admit Date/Time: 01/09/24 16:24 Attending Provider: Ramiro Love Admit Provider: Ramiro Love Primary Care Provider: Terri Workman
== END 2024-01-12 12:42 | disposition home or self-care (01) | DRG 460 ==
LOC: ASU 09:05 → 3E 16:24